=== PATIENT | male | born 1995 | race African-American/Black ===

== ENCOUNTER 2017-02-28 14:06 | Emergency (ER) | payer SELFPAY ==
[~2017-02-28] VITALS: Ht 182.9 cm; Wt 99.8 kg
[2017-02-28] MEDS ORDERED: DEXAMETHASONE SOD PHOS 20 MG/5 ML VIAL. IV ONE (15:15)
[2017-02-28] MEDS ORDERED: IPRATRPIUM/ALBUTEROL 0.5/2.5MG 3 ML NEBU. NEB ONE (15:15)
[2017-02-28 15:19] LABS: BASO % 1 % (0-3); EOS % 1 % (0-3); HEMATOCRIT 45.1 % (39.0-53.0); HEMOGLOBIN 15.2 g/dL (13.0-17.5); LYMPH # 1.6 x10^3/uL (1.0-4.8); LYMPH % 36 % (24-48); MEAN CORPUSCULAR HEMOGLOBIN 27 pg (25-35); MEAN CORPUSCULAR HGB CONC 34 g/dL (31-37); MEAN CORPUSCULAR VOLUME 80 fL (79-100); MONO % 14 % (0-9); NEUT % 48 % (31-73); PLATELET COUNT 198 x10^3/uL (140-400); RED BLOOD COUNT 5.62 x10^6/uL (4.30-5.70); RED CELL DISTRIBUTION WIDTH 12.8 % (11.5-14.5); WHITE BLOOD COUNT 4.3 x10^3/uL (4.0-11.0)
[2017-02-28 15:28] LABS: CALCIUM 9.1 mg/dL (8.5-10.1); CREATININE 1.4 mg/dL (0.7-1.3); GFR 77.4; POTASSIUM 3.7 mmol/L (3.5-5.1)
[2017-02-28 15:34] LABS: ALBUMIN/GLOBULIN RATIO 1.3 (1.0-1.7); TOTAL BILIRUBIN 1.4 mg/dL (0.2-1.0); TOTAL PROTEIN 7.2 g/dL (6.4-8.2)
--- NOTE | 2017-02-28 15:37 | EKG ---
[facility] [address] [place] [address] Test Date: 2017-02-28 Test Time: 14:16:32 Pat Name: SLADE MCLEOD Department: Room: Gender: M Second Officer: : 1995 Requested By: LEIGHTON JAIN Order Number: [id number] Reading MD: Andi Espitia Measurements Intervals [place] Rate: 86 P: 55 [place]: 140 QRS: 67 QRSD: 84 T: 41 QT: 326 QTc: 393 Interpretive Statements SINUS RHYTHM Electronically Signed On 03-05-2017 10:24:21 CDT by Andi Espitia
--- NOTE | 2017-02-28 15:50 | RAD ---
Portable chest, 02/28/2017: History: Chest pain The heart size and pulmonary vascularity are normal. No pulmonary infiltrates are seen. There is no evidence of pleural fluid. IMPRESSION: No acute cardiopulmonary abnormality is detected.
[2017-02-28] MEDS ORDERED: PROAIR HFA8.5 GM INH (16:43)
--- NOTE | 2017-02-28 16:43 | PHYS DOC ---
Past Medical History Past Medical History: No Pertinent History Past Surgical History: No Surgical History Alcohol Use: None Drug Use: Marijuana Adult General Chief Complaint Chief Complaint: CHEST WALL PAIN HPI HPI Patient is a 22 year old male presenting to the emergency department for evaluation of chest pain that has been going on for approximally 4 months. Patient says the pain is tightness in his left chest with no radiation diaphoresis nausea vomiting. The pain does make him short of breath and that he can have cough and runny nose with it as well. Patient says that it is not exertionally related actually exertion makes it better and go away and it usually happens at rest. He denies any diabetes hypertension high cholesterol or family history of heart disease. He says that he does smoke cigarettes. He said that he is coming in today as he felt that in the morning and in the afternoon but he is not feeling currently. Patient is in no obvious distress with normal vital signs Review of Systems Review of Systems Constitutional: Denies fever or chills [] Eyes: Denies change in visual acuity, redness, or eye pain [] HENT: + nasal congestion, sore throat [] Respiratory: + cough and shortness of breath [] Cardiovascular: + CP GI: Denies abdominal pain, nausea, vomiting, bloody stools or diarrhea [] : Denies dysuria or hematuria [] Musculoskeletal: Denies back pain or joint pain [] Integument: Denies rash or skin lesions [] Neurologic: Denies headache, focal weakness or sensory changes [] Current Medications Current Medications Current Medications Medications (Trade) Dose Ordered Sig/[facility] Start Time Stop Time Status Last Admin Dose Admin Albuterol/ Ipratropium (Duoneb) 3 ml 1X ONCE 02/28/17 15:15 02/28/17 15:16 DC 02/28/17 15:39 3 ML Dexamethasone Sodium Phosphate (Decadron) 8 mg 1X ONCE 02/28/17 15:15 02/28/17 15:16 DC 02/28/17 16:24 8 MG Allergies Allergies Allergies Coded Allergies Type Severity Reaction Last Updated Verified No Known Drug Allergies 02/28/17 No Physical Exam Physical Exam Constitutional: Well developed, well nourished, no acute distress, non-toxic appearance. [] HENT: Normocephalic, atraumatic, bilateral external ears normal, oropharynx moist, no oral exudates, nose normal. [] Eyes: PERRLA, EOMI, conjunctiva normal, no discharge. [] Neck: Normal range of motion, no tenderness, supple, no stridor. [] Cardiovascular:Heart rate regular rhythm, no murmur [] Lungs & Thorax: Bilateral breath sounds diminished with trace wheezing auscultated Abdomen: Bowel sounds normal, soft, no tenderness, no masses, no pulsatile masses. [] Skin: Warm, dry, no erythema, no rash. [] Back: No tenderness, no CVA tenderness. [] Extremities: No tenderness, no cyanosis, no clubbing, ROM intact, no edema. [] Neurologic: Alert and oriented X 3, normal motor function, normal sensory function, no focal deficits noted. [] Current Patient Data Vital Signs Vital Signs Date Time Temp Pulse Resp B/P (MAP) Pulse Ox O2 Delivery O2 Flow Rate FiO2 02/28/17 15:39 97 Room Air 02/28/17 14:15 98.5 98 18 142/68 (92) 98.5 Lab Values Laboratory Tests Test 02/28/17 14:26 White Blood Count 4.3 x10^3/uL (4.0-11.0) Red Blood Count 5.62 x10^6/uL (4.30-5.70) Hemoglobin 15.2 g/dL (13.0-17.5) Hematocrit 45.1 % (39.0-53.0) Mean Corpuscular Volume 80 fL (79-100) Mean Corpuscular Hemoglobin 27 pg (25-35) Mean Corpuscular Hemoglobin Concent 34 g/dL (31-37) Red Cell Distribution Width 12.8 % (11.5-14.5) Platelet Count 198 x10^3/uL (140-400) Neutrophils (%) (Auto) 48 % (31-73) Lymphocytes (%) (Auto) 36 % (24-48) Monocytes (%) (Auto) 14 % (0-9) H Eosinophils (%) (Auto) 1 % (0-3) Basophils (%) (Auto) 1 % (0-3) Neutrophils # (Auto) 2.0 x10^3uL (1.8-7.7) Lymphocytes # (Auto) 1.6 x10^3/uL (1.0-4.8) Monocytes # (Auto) 0.6 x10^3/uL (0.0-1.1) Eosinophils # (Auto) 0.1 x10^3/uL (0.0-0.7) Basophils # (Auto) 0.0 x10^3/uL (0.0-0.2) Sodium Level 141 mmol/L (136-145) Potassium Level 3.7 mmol/L (3.5-5.1) Chloride Level 104 mmol/L (98-107) Carbon Dioxide Level 28 mmol/L (21-32) Anion Gap 9 (6-14) Blood Urea Nitrogen 12 mg/dL (8-26) Creatinine 1.4 mg/dL (0.7-1.3) H Estimated GFR (Cockcroft-Gault) 77.4 BUN/Creatinine Ratio 9 (6-20) Glucose Level 104 mg/dL (70-99) H Calcium Level 9.1 mg/dL (8.5-10.1) Total Bilirubin 1.4 mg/dL (0.2-1.0) H Aspartate Amino Transferase (AST) 23 U/L (15-37) Alanine Aminotransferase (ALT) 37 U/L (16-63) Alkaline Phosphatase 61 U/L (46-116) Troponin I Quantitative < 0.017 ng/mL (0.000-0.055) Total Protein 7.2 g/dL (6.4-8.2) Albumin 4.0 g/dL (3.4-5.0) Albumin/Globulin Ratio 1.3 (1.0-1.7) Lipase 134 U/L (73-393) Laboratory Tests 02/28/17 14:26 Laboratory Tests 02/28/17 14:26 EKG EKG Sinus rhythm at 86 bpm with normal axis no obvious ST elevation or depression and normal T waves Radiology/Procedures Radiology/Procedures Portable chest, 02/28/2017: History: Chest pain The heart size and pulmonary vascularity are normal. No pulmonary infiltrates are seen. There is no evidence of pleural fluid. IMPRESSION: No acute cardiopulmonary abnormality is detected. DICTATED and SIGNED BY: TOMMY GAO MD DATE: 02/28/17 1549 Course & Med Decision Making Course & Med Decision Making Patient presenting to the emergency department for evaluation of chest pain is quite atypical for ACS as it has been going on for 4 months is nonexertional related. He has normal EKG and troponin more than 6 hours out from the onset of symptoms and his heart score is equal to 1 making him a very good candidate for outpatient treatment. Neb and Decadron made him feel better so recommended that he try some Nasonex will prescribe him an albuterol inhaler and have him follow with primary care provider in 2-3 days and come back to the emergency department sooner with worsening pain fevers or other general concerns. Patient verbalized understanding of the above instructions including need for follow-up and strict ED return precautions discussed. I do not suspect dissection. PERC score equal to 0. Dragon Disclaimer Dragon Disclaimer This electronic medical record was generated, in whole or in part, using a voice recognition dictation system. Departure Departure Impression: Primary Impression: Chest pain at rest Additional Impression: Wheezing Disposition: 01 HOME, SELF-CARE Condition: STABLE Referrals: NO PCP (PCP) SAURABH LINDQUIST MD Patient Instructions: Chest Pain (Nonspecific) Additional Instructions: TRY TAKING OTC PRILOSEC AND NASONEX. TRY USING THE INHALER TO SEE IF THIS HELPS YOUR PAIN. Follow with the special education bus driver to get further evaluation and come back to the ED sooner with any new worsening pain shortness of breath or other general concerns. Scripts Albuterol Sulfate (PROAIR HFA INHALER) 8.5 Gm Hfa.aer.ad 1 PUFF INH Q4HRS Y for SHORTNESS OF BREATH, #1 INHALER 0 Refills Prov: LEIGHTON JAIN DO 02/28/17 Problem Qualifiers LEIGHTON JAIN DO Feb 28, 2017 16:43
[2017-02-28 16:49] VITALS: BP 125/60
== END 2017-02-28 16:45 | disposition home or self-care (01) ==
LOC: ER 14:06
DX: R07.89 Other chest pain (principal); R06.2 Wheezing; F17.210 Nicotine dependence, cigarettes, uncomplicated
CPT/HCPCS: 36415; 71010; 80053; 83690; 84484; 85025; 93005; 94250; 94640; 96374; 99285; J1100; J7620